=== PATIENT | female | born 1980 | race Caucasian/White ===

== ENCOUNTER → 2023-03-11 12:33 | Outpatient (BNVA) | payer MEDICARE, MEDICAID, SELFPAY | PROVIDERS: Referring Provider Nurse Practitioner; Visit Provider Internal Medicine | DX: E23.7 Disorder of pituitary gland, unspecified (principal); E03.8 Other specified hypothyroidism; E27.40 Unspecified adrenocortical insufficiency; E78.2 Mixed hyperlipidemia; Z86.018 Personal history of other benign neoplasm; K14.6 Glossodynia; E11.9 Type 2 diabetes mellitus without complications; Z79.84 Long term (current) use of oral hypoglycemic drugs; Z79.890 Hormone replacement therapy | CPT/HCPCS: 36415; 80053; 80061; 82024; 82044; 82607; 82746; 83036; 83721; 84146; 84252; 84305; 84439; 84630; 85025; 99204 ==

== ENCOUNTER → 2023-03-25 10:39 | Outpatient (BNVA) | payer MEDICARE, SELFPAY | PROVIDERS: Visit Provider Internal Medicine | DX: E23.7 Disorder of pituitary gland, unspecified (principal); E03.8 Other specified hypothyroidism; E27.40 Unspecified adrenocortical insufficiency; E78.2 Mixed hyperlipidemia; Z86.018 Personal history of other benign neoplasm; K14.6 Glossodynia; Z98.890 Other specified postprocedural states; E28.39 Other primary ovarian failure; Z79.890 Hormone replacement therapy; Z79.84 Long term (current) use of oral hypoglycemic drugs | CPT/HCPCS: 99214 ==

== ENCOUNTER 2023-04-19 10:18 | Outpatient (CLI) | payer MEDICARE, SELFPAY ==
--- NOTE | 2023-04-19 11:00 | MR_ITS ---
WS: [id number] MRI BRAIN WITHOUT AND WITH CONTRAST, ATTENTION DIRECTED TO THE PITUITARY GLAND HISTORY: Pituitary abnormality histroy of pituitary surgery COMPARISON: Prior MRI pituitary gland 06/04/2021 and 12/13/2019 TECHNIQUE: Diffusion-weighted imaging, axial T2 sequence, and postcontrast images in 3 planes are per formed. High-resolution coronal and sagittal imaging performed through the pituitary region with and without intravenous gadolinium. MultiHance 20 mL IV. Normal diffusion imaging. No acute infarct. No hemorrhage. Reidentified is mild atrophy and volume lo ss in the anterior LEFT temporal lobe. Small amount of increased signal in the anterior LEFT temporal lobe. This is very similar to the prior examination from 06/04/2021. No hydrocephalus or midline shif t. Reidentified is asymmetric increased soft tissue in the LEFT sella turcica. The increased soft tissue extends over a superior-inferior dimension of 10 mm, anterior posterior and12 mm transversely by 11 mm. The increased soft tissue extends into the LEFT cavernous sinus. Very similar in appearance to pr ior imaging studies. There is enhancement on the postcontrast imaging. Very similar appearance to the prior examinations with no progression. The optic chiasm and the infundibulum remains midline. No intra displacement the cerebellar tonsils. Upper cervical spine is normal. Paranasal sinuses and mastoid air cells are negative. Prior LEFT temporal craniotomy. IMPRESSION: 1. 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 2. Asymmetric soft tissue in the LEFT sella turcica extending into the LEFT cavernous sinus is simila r in appearance and size as the prior examinations from 06/04/2021 and 12/13/2019.
[2023-04-19] MEDS: gadobenate dimeglumine 20 mL vial IV (12:05)
== END 2023-04-19 10:19 | disposition home or self-care (01) ==
LOC: RAD 10:20
PROVIDERS: Visit Provider Internal Medicine
DX: E23.7 Disorder of pituitary gland, unspecified (principal); Z86.018 Personal history of other benign neoplasm; Z98.890 Other specified postprocedural states; G93.89 Other specified disorders of brain
CPT/HCPCS: 70553; A9577

== ENCOUNTER → 2023-12-07 08:46 | Outpatient (BNVA) | payer MEDICARE, SELFPAY | PROVIDERS: Visit Provider Internal Medicine | DX: E23.7 Disorder of pituitary gland, unspecified (principal); E03.8 Other specified hypothyroidism; E27.40 Unspecified adrenocortical insufficiency; E78.2 Mixed hyperlipidemia; Z86.018 Personal history of other benign neoplasm; Z98.890 Other specified postprocedural states; E28.39 Other primary ovarian failure; E55.9 Vitamin D deficiency, unspecified; R79.89 Other specified abnormal findings of blood chemistry; K14.6 Glossodynia; Z79.84 Long term (current) use of oral hypoglycemic drugs; Z79.890 Hormone replacement therapy | CPT/HCPCS: 36415; 80053; 80061; 82044; 82306; 82607; 83036; 84305; 84439; 99214 ==

== ENCOUNTER → 2024-08-09 12:00 | Outpatient (BNVA) | payer MEDICARE, SELFPAY | PROVIDERS: PCP Family Medicine; Visit Provider Internal Medicine | DX: E27.40 Unspecified adrenocortical insufficiency (principal); E03.8 Other specified hypothyroidism; E23.7 Disorder of pituitary gland, unspecified; E28.39 Other primary ovarian failure; E11.9 Type 2 diabetes mellitus without complications | CPT/HCPCS: 36415; 80053; 80061; 82024; 82044; 82607; 82746; 83036; 84146; 84305; 84439; 85025; 85651; 86003; 86008; 86141; 86160; 86162; 86200; 86235; 86255; 86376; 86431 ==